=== PATIENT | female | born 1960 | race African-American/Black ===

== ENCOUNTER → 2016-07-12 | Outpatient (CLI) | payer MEDICARE ==
[~2016-07-12] MED LIST: AMITRYPTYLINE PO; AMLODIPINE BESYL5 MG PO; ARTHROTEC 501 TAB.EC PO; ASPIR-TRIN325 MG PO; ASPIRIN PO; ATARAX PO; CIPRO PO; EFFEXOR XR PO; FELDENE20 MG PO; FLEXERIL PO; FLEXERIL10 MG PO; GLUCOPHAGE500 MG PO; HYDROXYZINE HCL25 M1 PO; ISORDIL PO; ISORDIL10 MG PO; LIORESAL10 MG PO; LIPITOR20 MG PO; LORTAB 7.5-5001 TAB PO; NEURONTIN300 MG PO; NITROGLYCERIN0.4 MG SL; NITROGYLCERIN SUBLINGUAL; ORUDIS75 M1 PO; PAXIL30 MG PO; PRAVASTATIN SOD10 MG PO; PRINIVIL20 M1 PO; VIT D; ZANTAC PO
--- NOTE | ~2016-07-12 | US136 ---
[facility] A Service of [facility] RADIOLOGY TEXT RESULTS PATIENT: RAHAT CHAVIRA LOCATION: CNIV : 62 UNIT #: [id number] AGE: [address]: Rodney Walters DPM SEX: F ORDER DR: [id number] [facility] [address] [place], [place] [address] [id number] O MR#: [id number] Acc #: [id number] NAME: RAHAT CHAVIRA : 1960 SEX: F STUDY DATE/TIME: 07/12/2016 10:49 UNIT: CNIV ROOM: STUDY DESCRIPTION: U/L [facility] Art Study [facility] Bil Attending Physician: Rodney Walters D.P.M. Referring Physician: Rodney Walters D.P.M. Ordering Physician: Rodney Walters D.P.M. Primary Care Physician: Durga Castillo Jr., A.P.R.N. MEDICAL IMAGING REPORT This report is preliminary unless electronic signature is present EXAM Bilateral ankle to brachial indices 07/12/2016 INDICATION Claudication for several months. TECHNIQUE Sequential pressures were obtained through both lower extremities and pulse volume recordings were generated. FINDINGS This patient's ankle-brachial indices are abnormal bilaterally measuring 0.76 at the dorsalis pedis artery on the right and 0.71 at the posterior tibial artery on the right. Ankle-brachial index at the posterior tibial artery on the left is 0.63 and at the dorsalis pedis artery on the left is 0.74. Both toe to brachial indices are also diminished measuring 0.63 on the right and 0.59 on the left. IMPRESSION Bilaterally diminished ankle-brachial indices signifying multilevel arterial disease. This could be better assessed with CT angiography of the abdomen and pelvis with bilateral lower extremity runoff. Patient's toe-brachial indices are also diminished bilaterally. This may reflect inflow disease, small vessel disease or a combination of both. Dictated by... Christa Soler M.D. THIS IS AN ELECTRONICALLY VERIFIED REPORT Christa Soler M.D. at 07/12/2016 4:48 PM AFF/jf TD: 07/12/2016 15:49 [facility] A Service of [facility] RADIOLOGY TEXT RESULTS PATIENT: RAHAT CHAVIRA LOCATION: CNIV : 62 UNIT #: [id number] AGE: [address]: Rodney Walters DPM SEX: F ORDER DR: SURAJ #: [id number] MEDICAL IMAGING REPORT Page 1 of 1 COPY
== END | disposition home or self-care (01) ==
LOC: CNIV 10:40
DX: I73.9 Peripheral vascular disease, unspecified (principal); I77.9 Disorder of arteries and arterioles, unspecified
CPT/HCPCS: 93922